=== PATIENT | male | born 1980 | race Caucasian/White ===

== ENCOUNTER 2023-05-05 10:46 | Emergency (ER) | payer SELFPAY ==
[~2023-05-05] VITALS: Ht 182.9 cm; Wt 120.7 kg
[2023-05-05 10:53] VITALS: O2SAT 100
[2023-05-05] MEDS ORDERED: KETOROLAC TROMETHAMINE 60 MG/2 ML VIAL IM ONE (11:00)
[2023-05-05] MEDS ORDERED: CYCLOBENZAPRINE10 MG PO (13:50)
== END 2023-05-05 14:18 | disposition home or self-care (01) ==
LOC: ER 10:53
DX: M54.50 Low back pain, unspecified (principal); Z85.828 Personal history of other malignant neoplasm of skin; F17.210 Nicotine dependence, cigarettes, uncomplicated
CPT/HCPCS: 72110; 99283; J1885